=== PATIENT | female | born 1950 | race Caucasian/White ===

== ENCOUNTER 2021-10-30 13:50 | Outpatient (CLI) | payer BC | END 2021-10-30 13:51 | disposition home or self-care (01) | LOC: BICRAD 13:50 | PROVIDERS: ATTEND Chiropractor | DX: M54.6 Pain in thoracic spine (principal); M40.204 Unspecified kyphosis, thoracic region; M47.814 Spondylosis without myelopathy or radiculopathy, thoracic region | CPT/HCPCS: 72072 ==